=== PATIENT | female | born 1960 | race Caucasian/White ===

== ENCOUNTER 2019-06-19 20:49 | Emergency (ER) | payer SELFPAY ==
--- NOTE | 2019-06-19 21:26 | EDM.PDOC ---
ED HPI GENERAL MEDICAL PROBLEM - General Chief Complaint: General Stated Complaint: chest pain Time Seen by Provider: 06/19/19 21:14 Source of Information: Reports: Patient History Limitations: Reports: No Limitations - History of Present Illness INITIAL COMMENTS - FREE TEXT/NARRATIVE: Patient is a 59-year-old female who presents to the emergency department via private vehicle this evening and has a complaint of chest pain. Patient states the chest pain began at 1400 today. Chest pain is localized to the midsternal, however, she is unable to describe the pain. Patient states that pain is intermittent, lasts approximately 10 seconds then resolves for a minute or so and then comes right back. Patient does have a smell of alcohol on her breath. However, she does not appear intoxicated and answers all questions appropriately. She does state that she had about 4 drinks in the last 2-3 hours at a local bar. Patient admits to at least 6 drinks per day. Patient denies any cardiac history, cardiac workup, shortness of breath, fever, out of country travel, trauma, lower extremity edema, or similar symptoms in the past. Onset: Today Onset Date: 06/19/19 Onset Time: 14:00 Duration: Hour(s):, Intermittent Location: Reports: Chest Quality: Reports: Other (Unable to describe pain) Improves with: Reports: None Worsens with: Reports: None Context: Reports: Other (While at rest). Denies: Activity, Trauma Associated Symptoms: Reports: Chest Pain. Denies: Cough, Diaphoresis, Fever/ Chills, Nausea/Vomiting, Shortness of Breath Chest Pain Score (Numeric/FACES): 6 - Related Data Allergies Allergy/AdvReac Type Severity Reaction Status Date / Time morphine Allergy Mild Itching Verified 06/19/19 21:32 peanut Allergy Swelling Verified 06/19/19 21:32 Home Meds: Home Meds . [No Known Home Meds] 05/04/18 [History] Past Medical History - Past Health History Medical/Surgical History: Denies Medical/Surgical History HEENT History: Reports: Impaired Vision Respiratory History: Reports: COPD Musculoskeletal History: Reports: Arthritis, Back Pain, Chronic Psychiatric History: Reports: Addiction, Anxiety, Depression - Past Surgical History Female Surgical History: Reports: Hysterectomy Neurological Surgical History: Reports: Spinal Fusion Social & Family History - Family History Family Medical History: Unobtainable - Caffeine Use Caffeine Use Comment: did not ask ED ROS GENERAL - Review of Systems Review Of Systems: Comprehensive ROS is negative, except as noted in HPI. Constitutional: Reports: No Symptoms HEENT: Reports: No Symptoms Respiratory: Reports: No Symptoms Cardiovascular: Reports: Chest Pain Endocrine: Reports: No Symptoms GI/Abdominal: Reports: No Symptoms : Reports: No Symptoms Musculoskeletal: Reports: No Symptoms Skin: Reports: No Symptoms Neurological: Reports: No Symptoms Psychiatric: Reports: No Symptoms Hematologic/Lymphatic: Reports: No Symptoms Immunologic: Reports: No Symptoms ED EXAM, GENERAL - Physical Exam Exam: See Below Exam Limited By: No Limitations General Appearance: Alert, WD/WN, No Apparent Distress Eye Exam: Bilateral Eye: Normal Inspection Nose: Normal Inspection, Normal Mucosa, No Blood Throat/Mouth: Normal Inspection, Normal Oropharynx, No Airway Compromise Head: Atraumatic, Normocephalic Neck: Normal Inspection, Supple, Non-Tender Respiratory/Chest: No Respiratory Distress, Lungs Clear, Normal Breath Sounds, No Accessory Muscle Use Cardiovascular: Normal Peripheral Pulses, Regular Rate, Rhythm, No Murmur, No Rub GI/Abdominal: Normal Bowel Sounds, Soft, Tender (Epigastric) Back Exam: Normal Inspection. No: CVA Tenderness (L), CVA Tenderness (R) Extremities: Normal Inspection, No Pedal Edema Neurological: Alert, Oriented, Normal Cognition Psychiatric: Normal Affect, Normal Mood Skin Exam: Warm, Dry, Intact, Normal Color, No Rash Lymphatic: No Adenopathy EKG INTERPRETATION EKG Date: 06/19/19 Time: 21:15 Rhythm: NSR Rate (Beats/Min): 85 [place]: Normal P-Wave: Present QRS: Normal ST-T: Normal QT: Normal Comparison: NA - No Prior EKG Course - Vital Signs Last Recorded V/S: Last Vital Signs Temp 96.2 F 06/19/19 20:49 Pulse 90 06/19/19 21:50 Resp 20 06/19/19 21:50 BP 152/88 H 06/19/19 21:40 Pulse Ox 99 06/19/19 21:50 - Orders/Labs/Meds Orders: Active Orders 24 hr Category Date Time Status EKG Documentation Completion [RC] ASDIRECTED Care 06/19/19 21:15 Ordered Chest 1V Frontal [CR] Stat Exams 06/19/19 21:14 Ordered EKG 12 Lead [EK] Routine Ther 06/19/19 21:14 Ordered Labs: Laboratory Tests 06/19/19 06/19/19 06/19/19 Range/Units 21:05 21:05 21:05 WBC 7.97 (5.00-10.00) 10^3/uL RBC 3.30 L (3.80-5.50) 10^6/uL Hgb 12.5 (12.0-16.0) g/dL Hct 35.9 L (37.0-47.0) % MCV 108.8 H (82.0-92.0) fL MCH 37.9 H (27.0-31.0) pg MCHC 34.8 (32.0-36.0) g/dL RDW 13.0 (11.5-14.5) % Plt Count 222 (150-400) 10^3/uL MPV 10.8 H (7.4-10.4) fL Immature Gran % (Auto) 0.1 (0.0-5.0) % Neut % (Auto) 48.2 L (50.0-70.0) % Lymph % (Auto) 38.1 (20.0-40.0) % [place] % (Auto) 12.2 H (2.0-8.0) % Eos % (Auto) 1.0 (1.0-3.0) % Baso % (Auto) 0.4 (0.0-1.0) % Immature Gran # (Auto) 0.01 (0.00-0.50) 10^3/uL Neut # (Auto) 3.84 (2.50-7.00) 10^3/uL Lymph # (Auto) 3.04 (1.00-4.00) 10^3/uL [place] # (Auto) 0.97 H (0.10-0.80) 10^3/uL Eos # (Auto) 0.08 L (0.10-0.30) 10^3/uL Baso # (Auto) 0.03 (0.00-0.10) 10^3/uL D-Dimer, Quantitative < 100 (<400) ng/mL Sodium 137 (136-145) mmol/L Potassium 3.3 (3.3-5.3) mmol/L Chloride 99 (98-115) mmol/L Carbon Dioxide 22.9 (21.0-32.0) mmol/L Anion Gap 18.4 H (5-15) mmol/L BUN 6 (6-25) mg/dL Creatinine 0.67 (0.51-1.17) mg/dL Est Cr Clr Drug Dosing TNP Estimated GFR (MDRD) > 60 mL/min Glucose 98 (75 - 99) mg/dL Calcium 8.9 (8.7-10.3) mg/dL Total Bilirubin 0.3 (0.2-1.0) mg/dL AST 126 H (15-37) U/L ALT 72 (12-78) U/L Alkaline Phosphatase 72 (46-116) IU/L Troponin I < 0.04 (0.00-0.070) ng/mL Total Protein 7.6 (6.4-8.2) g/dL Albumin 3.49 (3.00-4.80) g/dL Lipase 273 (73-393) U/L Specimen Type Urine Color (YELLOW) Urine Appearance (CLEAR) Urine pH (5.0-9.0) Ur Specific [place] (1.005-1.030) Urine Protein (NEGATIVE) mg/dL Urine Glucose (UA) (NEGATIVE) mg/dL Urine Ketones (NEGATIVE) mg/dL Urine Occult Blood (NEGATIVE) Urine Nitrite (NEGATIVE) Urine Bilirubin (NEGATIVE) Urine Urobilinogen (0.2-1.0) E.U./dL Ur Leukocyte Esterase (NEGATIVE) Urine RBC (0-5) /HPF Urine WBC (0-5) /HPF Ur Epithelial Cells /LPF Urine Bacteria (NONE TO FEW) /HPF Urine Mucus (NEGATIVE) /LPF Urine Opiates Screen (NEGATIVE) Ur Oxycodone Screen (NEGATIVE) Urine Methadone Screen (NEGATIVE) Ur Propoxyphene Screen (NEGATIVE) Ur Barbiturates Screen (NEGATIVE) Ur Tricyclics Screen (NEGATIVE) Ur Phencyclidine Scrn (NEGATIVE) Ur Amphetamine Screen (NEGATIVE) U Methamphetamines Scrn (NEGATIVE) U Benzodiazepines Scrn (NEGATIVE) U Cocaine Metab Screen (NEGATIVE) U Marijuana (THC) Screen (NEGATIVE) Ethyl Alcohol 252 H* (NONE DETECTED) mg/dL 06/19/19 06/19/19 Range/Units 21:15 21:25 WBC (5.00-10.00) 10^3/uL RBC (3.80-5.50) 10^6/uL Hgb (12.0-16.0) g/dL Hct (37.0-47.0) % MCV (82.0-92.0) fL MCH (27.0-31.0) pg MCHC (32.0-36.0) g/dL RDW (11.5-14.5) % Plt Count (150-400) 10^3/uL MPV (7.4-10.4) fL Immature Gran % (Auto) (0.0-5.0) % Neut % (Auto) (50.0-70.0) % Lymph % (Auto) (20.0-40.0) % [place] % (Auto) (2.0-8.0) % Eos % (Auto) (1.0-3.0) % Baso % (Auto) (0.0-1.0) % Immature Gran # (Auto) (0.00-0.50) 10^3/uL Neut # (Auto) (2.50-7.00) 10^3/uL Lymph # (Auto) (1.00-4.00) 10^3/uL [place] # (Auto) (0.10-0.80) 10^3/uL Eos # (Auto) (0.10-0.30) 10^3/uL Baso # (Auto) (0.00-0.10) 10^3/uL D-Dimer, Quantitative (<400) ng/mL Sodium (136-145) mmol/L Potassium (3.3-5.3) mmol/L Chloride (98-115) mmol/L Carbon Dioxide (21.0-32.0) mmol/L Anion Gap (5-15) mmol/L BUN (6-25) mg/dL Creatinine (0.51-1.17) mg/dL Est Cr Clr Drug Dosing Estimated GFR (MDRD) mL/min Glucose (75 - 99) mg/dL Calcium (8.7-10.3) mg/dL Total Bilirubin (0.2-1.0) mg/dL AST (15-37) U/L ALT (12-78) U/L Alkaline Phosphatase (46-116) IU/L Troponin I (0.00-0.070) ng/mL Total Protein (6.4-8.2) g/dL Albumin (3.00-4.80) g/dL Lipase (73-393) U/L Specimen Type . Urine Color Yellow (YELLOW) Urine Appearance Clear (CLEAR) Urine pH 5.5 (5.0-9.0) Ur Specific [place] <= 1.005 (1.005-1.030) Urine Protein Negative (NEGATIVE) mg/dL Urine Glucose (UA) Negative (NEGATIVE) mg/dL Urine Ketones Negative (NEGATIVE) mg/dL Urine Occult Blood Trace-lysed H (NEGATIVE) Urine Nitrite Negative (NEGATIVE) Urine Bilirubin Negative (NEGATIVE) Urine Urobilinogen 0.2 (0.2-1.0) E.U./dL Ur Leukocyte Esterase Negative (NEGATIVE) Urine RBC 0-5 (0-5) /HPF Urine WBC 0-5 (0-5) /HPF Ur Epithelial Cells Moderate H /LPF Urine Bacteria Not seen (NONE TO FEW) /HPF Urine Mucus Few H (NEGATIVE) /LPF Urine Opiates Screen Negative (NEGATIVE) Ur Oxycodone Screen Negative (NEGATIVE) Urine Methadone Screen Negative (NEGATIVE) Ur Propoxyphene Screen Negative (NEGATIVE) Ur Barbiturates Screen Negative (NEGATIVE) Ur Tricyclics Screen Negative (NEGATIVE) Ur Phencyclidine Scrn Negative (NEGATIVE) Ur Amphetamine Screen Negative (NEGATIVE) U Methamphetamines Scrn Negative (NEGATIVE) U Benzodiazepines Scrn Negative (NEGATIVE) U Cocaine Metab Screen Negative (NEGATIVE) U Marijuana (THC) Screen Negative (NEGATIVE) Ethyl Alcohol (NONE DETECTED) mg/dL Meds: Medications Discontinued Medications Generic Name Dose Route Start Last Admin Trade Name Pastor PRN Reason Stop Dose Admin Famotidine 20 mg 06/19/19 21:23 06/19/19 21:38 Pepcid IVPUSH 06/19/19 21:24 20 mg ONETIME ONE Administration - Radiology Interpretation Free Text/Narrative:: Chest x-ray shows no acute cardiopulmonary process - Re-Assessments/Exams Free Text/Narrative Re-Assessment/Exam: 06/19/19 22:19 Patient afebrile, vital signs stable, pain mostly relieved. Discussed in length with patient EtOH abuse. Patient will follow-up with PCP Departure - Departure Time of Disposition: 22:20 Disposition: Home, Self-Care 01 Condition: Good Clinical Impression: ETOH abuse Alcoholic gastritis Qualifiers: Chronicity: unspecified Gastritis bleeding: without bleeding Qualified Code(s) : K29.20 - Alcoholic gastritis without bleeding - Discharge Information Instructions: Alcohol Use Disorder, Gastritis, Adult, [id number] Forms: ED Department Discharge Additional Instructions: Follow-up with PCP. Return to emergency department if symptoms continue or worsen. - My Orders Last 24 Hours: My Active Orders 06/19/19 21:14 Chest 1V Frontal [CR] Stat EKG 12 Lead [EK] Routine 06/19/19 21:15 EKG Documentation Completion [RC] ASDIRECTED - Assessment/Plan Last 24 Hours: My Active Orders 06/19/19 21:14 Chest 1V Frontal [CR] Stat EKG 12 Lead [EK] Routine 06/19/19 21:15 EKG Documentation Completion [RC] ASDIRECTED Assessment:: Gastritis Plan: Follow-up with PCP
[2019-06-19] MEDS: Famotidine 20 MG/2 ML SDV IVPUSH ONE (21:38)
[2019-06-19 22:03] LABS: BARBITURATE SCREEN,URINE NEGATIVE (NEGATIVE); BENZODIAZEPINES SCREEN,URINE NEGATIVE (NEGATIVE); TCA SCREEN,URINE NEGATIVE (NEGATIVE); THC SCREEN,URINE 50 NG/ML NEGATIVE (NEGATIVE)
[2019-06-19 22:15] LABS: ANION GAP 18.4 mmol/L (5-15); CHLORIDE,CL 99 mmol/L (98-115); SODIUM,NA 137 mmol/L (136-145)
[2019-06-19 22:59] VITALS: BP 145/61; PULSE 96
--- NOTE | 2019-06-20 09:28 | CR ---
[id number] RAD/RAD Chest PA or AP 1V EXAM: FRONTAL CHEST INDICATION: CHEST PAIN COMPARISON: May 28, 2010. DISCUSSION: The lungs are borderline hyperinflated, but clear. The heart is normal in size. IMPRESSION: 1. Negative exam. Lobo Rey MD 06/20/19 0927 Thank you for allowing us to participate in the care of your patient.
== END 2019-06-19 22:36 | disposition home or self-care (01) ==
LOC: KA.ED 20:49
DX: K29.20 Alcoholic gastritis without bleeding (principal); F10.10 Alcohol abuse, uncomplicated; Y90.8 Blood alcohol level of 240 mg/100 ml or more; J44.9 Chronic obstructive pulmonary disease, unspecified; Z88.6 Allergy status to analgesic agent; Z91.010 Allergy to peanuts
CPT/HCPCS: 71045; 80053; 80305-QW; 81001; 83690; 84484; 85025; 85379; 93005; 96374; 99285-25; G0480; J3490